=== PATIENT | male | born 1935 | race Two or more races ===

== ENCOUNTER → 2018-04-28 | Outpatient (CLI) | payer OTHER | END | disposition home or self-care (01) | LOC: TOM 10:00 | DX: H70.12 Chronic mastoiditis, left ear (principal) ==

== ENCOUNTER 2018-06-09 12:55 | Outpatient (CLI) | payer OTHER | END 2018-06-09 13:13 | disposition home or self-care (01) | LOC: RAD 12:55 | DX: I10 Essential (primary) hypertension (principal) ==

== ENCOUNTER 2022-04-03 14:19 | Outpatient (CLI) | payer OTHER | END 2022-04-03 14:23 | disposition home or self-care (01) | LOC: TOM 14:19 | PROVIDERS: ATTEND General Practice | DX: R31.9 Hematuria, unspecified (principal); R10.2 Pelvic and perineal pain; R10.9 Unspecified abdominal pain ==

== ENCOUNTER 2022-04-14 11:09 | Outpatient (CLI) | payer OTHER | END 2022-04-14 11:23 | disposition home or self-care (01) | LOC: RAD 11:09 | PROVIDERS: ATTEND Urology | DX: I11.9 Hypertensive heart disease without heart failure (principal) ==

== ENCOUNTER 2022-04-23 09:43 | Day surgery (SDC) | payer OTHER ==
[~2022-04-23 09:43] MED LIST: ARICEPT10 MG PO; AVALIDE 300-121 EACH PO; GLIMEPIRIDE2 MG; LEXAPRO5 MG PO; NAMENDA1 EACH PO; PEPCID AC20 MG PO; VERAPAMIL HCL40 MG PO; ZOCOR20 MG PO
== END 2022-04-23 16:00 | disposition home or self-care (01) ==
LOC: CIR.AMB 09:43
PROVIDERS: ATTEND Urology
DX: C67.9 Malignant neoplasm of bladder, unspecified (principal); N47.7 Other inflammatory diseases of prepuce; Z20.822 Contact with and (suspected) exposure to COVID-19; I10 Essential (primary) hypertension; Z95.1 Presence of aortocoronary bypass graft; Z87.891 Personal history of nicotine dependence

== ENCOUNTER 2022-06-17 12:04 | Outpatient (CLI) | payer OTHER | END 2022-06-17 12:11 | disposition home or self-care (01) | LOC: SONOGRAMA 12:04 | PROVIDERS: ATTEND Urology | DX: N18.9 Chronic kidney disease, unspecified (principal) ==

== ENCOUNTER 2022-06-17 13:23 | Outpatient (CLI) | payer OTHER | END 2022-06-17 13:26 | disposition home or self-care (01) | LOC: LAB 13:23 | PROVIDERS: ATTEND Urology | DX: N18.9 Chronic kidney disease, unspecified (principal) ==